=== PATIENT | female | born 1995 | race Caucasian/White ===

== ENCOUNTER 2017-08-31 15:05 | Emergency (ER) | payer OTHER ==
[2017-08-31] MEDS: METOCLOPRAMIDE INJ 10MG/2ML VIAL (J2765) IV (16:40)
[2017-08-31] MEDS: NS 500 ML IV (16:40)
[2017-08-31 16:43] LABS: BASO % 0.2 % (0.0-1.0); EOS % 0.1 % (0.0-3.0); HEMATOCRIT 36.8 % (36.0-47.0); HEMOGLOBIN 13.1 g/dl (12.0-16.0); IMMATURE GRANULOCYTE % 0.3 % (0-0); LYMPH # 1.7 10^3/uL (1.5-6.5); LYMPH % 18.8 % (24.0-44.0); MEAN CORPUSCULAR HGB CONC 35.6 g/dl (32.0-36.5); MEAN CORPUSCULAR VOLUME 87.2 fl (80.0-96.0); MONO # 0.5 10^3/uL (0.0-0.8); MONO % 5.1 % (0.0-5.0); NEUTROPHILS % 75.5 % (36.0-66.0); PLATELET COUNT, AUTOMATED 290 10^3/uL (150-450); RED BLOOD COUNT 4.22 10^6/uL (4.00-5.40); RED CELL DISTRIBUTION WIDTH 12.8 % (11.5-14.5); WHITE BLOOD COUNT 9.2 10^3/uL (4.0-10.0)
[2017-08-31 17:06] LABS: ALBUMIN/GLOBULIN RATIO 1.21 (1.00-1.93); ALKALINE PHOSPHATASE 54 U/L (45-117); ALT/SGPT 42 U/L (12-78); ANION GAP 5 MEQ/L (8-16); AST/SGOT 27 U/L (7-37); BILIRUBIN,TOTAL 0.3 MG/DL (0.2-1.0); BLOOD UREA NITROGEN 9 MG/DL (7-18); C REACTIVE PROTEIN QUANTITATIV 0.39 MG/DL (0.00-0.30); CALCIUM LEVEL 9.3 MG/DL (8.5-10.1); CARBON DIOXIDE LEVEL 26 MEQ/L (21-32); CHLORIDE LEVEL 106 MEQ/L (98-107); CREATININE FOR GFR 0.45 MG/DL (0.55-1.02); GLOMERULAR FILTRATION RATE > 60.0 (>60); GLUCOSE, FASTING 79 MG/DL (70-105); SODIUM LEVEL 137 MEQ/L (136-145); TOTAL PROTEIN 7.3 GM/DL (6.4-8.2)
[2017-08-31] MEDS: NITROFURANTOIN (MACROBID) 100 MG CAP PO (17:29)
== END 2017-08-31 17:43 | disposition home or self-care (01) ==
LOC: M ED 15:05
DX: O23.41 Unspecified infection of urinary tract in pregnancy, first trimester (principal); Z3A.11 11 weeks gestation of pregnancy; Z87.442 Personal history of urinary calculi
CPT/HCPCS: J2765

== ENCOUNTER → 2017-10-15 | Outpatient (CLI) | payer OTHER | LOC: M RAD 10:33 | DX: Z36.0 Encounter for antenatal screening for chromosomal anomalies (principal); Z3A.16 16 weeks gestation of pregnancy | CPT/HCPCS: 76811 ==

== ENCOUNTER 2018-06-05 10:36 | Emergency (ER) | payer OTHER ==
[2018-06-05] MEDS: METOCLOPRAMIDE 10 MG TAB PO (11:05)
[2018-06-05 11:29] LABS: KETONE, URINE AUTO RFX NEGATIVE (NEGATIVE); MUCUS, URINE RFX SMALL (NEGATIVE); NITRITE, URINE AUTO RFX NEGATIVE (NEGATIVE); RBC, URINE AUTO RFX 0 /HPF (0-3); SPECIFIC GRAVITY UR AUTO RFX 1.009 (1.002-1.035); SQUAM EPITHELIAL CELL UR AURFX 3 /HPF (0-6); WBC, URINE AUTO RFX 4 /HPF (0-3)
[2018-06-05 11:30] LABS: LEUKOCYTE ESTERASE UR AUTO RFX 1+ (NEGATIVE)
== END 2018-06-05 12:09 | disposition home or self-care (01) ==
LOC: M ED 10:36
DX: O23.41 Unspecified infection of urinary tract in pregnancy, first trimester (principal); O99.89 Other specified diseases and conditions complicating pregnancy, childbirth and the puerperium; R11.0 Nausea; Z3A.01 Less than 8 weeks gestation of pregnancy
CPT/HCPCS: 81001

== ENCOUNTER 2018-07-17 00:38 | Emergency (ER) | payer OTHER ==
[2018-07-17 01:58] LABS: BASO % 0.2 % (0.0-1.0); EOS % 0.4 % (0.0-3.0); HEMATOCRIT 34.3 % (36.0-47.0); HEMOGLOBIN 12.3 g/dl (12.0-15.5); IMMATURE GRANULOCYTE % 0.4 % (0-3.0); LYMPH # 2.4 10^3/uL (1.5-6.5); MEAN CORPUSCULAR HEMOGLOBIN 30.6 pg (27.0-33.0); MEAN CORPUSCULAR HGB CONC 35.9 g/dl (32.0-36.5); MEAN CORPUSCULAR VOLUME 85.3 fl (80.0-96.0); MONO # 0.5 10^3/uL (0.0-0.8); MONO % 4.8 % (0.0-5.0); NEUTROPHILS # 7.5 10^3/uL (1.8-7.7); NEUTROPHILS % 71.2 % (36.0-66.0); PLATELET COUNT, AUTOMATED 313 10^3/uL (150-450); RED BLOOD COUNT 4.02 10^6/uL (4.00-5.40); RED CELL DISTRIBUTION WIDTH 12.9 % (11.5-14.5); WHITE BLOOD COUNT 10.6 10^3/uL (4.0-10.0)
[2018-07-17] MEDS: NS 1,000 ML IV (02:18)
[2018-07-17 02:48] LABS: ALBUMIN 3.2 GM/DL (3.2-5.2); ALKALINE PHOSPHATASE 50 U/L (45-117); ALT/SGPT 30 U/L (12-78); ANION GAP 12 MEQ/L (8-16); AST/SGOT 15 U/L (7-37); BILIRUBIN,DIRECT < 0.1 MG/DL (0.0-0.2); BILIRUBIN,TOTAL 0.2 MG/DL (0.2-1.0); BLOOD UREA NITROGEN 10 MG/DL (7-18); CALCIUM LEVEL 8.4 MG/DL (8.5-10.1); CARBON DIOXIDE LEVEL 20 MEQ/L (21-32); CHLORIDE LEVEL 109 MEQ/L (98-107); CREATININE FOR GFR 0.45 MG/DL (0.55-1.30); GLOMERULAR FILTRATION RATE > 60.0 (>60); GLUCOSE, FASTING 94 MG/DL (70-100); HCG, SERUM QUANTITATIVE 40260 MIU/ML; POTASSIUM SERUM 3.5 MEQ/L (3.5-5.1); SODIUM LEVEL 141 MEQ/L (136-145); TOTAL PROTEIN 6.4 GM/DL (6.4-8.2)
[2018-07-17 03:30] LABS: APPEARANCE, URINE HAZY (CLEAR); BACTERIA, URINE AUTO 1+ (NEGATIVE); BILIRUBIN, URINE AUTO NEGATIVE (NEGATIVE); BLOOD, URINE BLOOD NEGATIVE (NEGATIVE); COLOR, URINE YELLOW (YELLOW); GLUCOSE, URINE (UA) AUTO NEGATIVE (NEGATIVE); KETONE, URINE AUTO NEGATIVE (NEGATIVE); LEUKOCYTE ESTERASE, URINE AUTO 2+ (NEGATIVE); MUCUS, URINE SMALL (NEGATIVE); NITRITE, URINE AUTO NEGATIVE (NEGATIVE); PROTEIN, URINE AUTO NEGATIVE (NEGATIVE); RBC, URINE AUTO 4 /HPF (0-3); SQUAMOUS EPITHELIAL CELL UR AU 4 /HPF (0-6); WBC, URINE AUTO 14 /HPF (0-3)
[2018-07-17] MEDS: cefTRIAXone SOD 1 GM in D5W MINI-BAG PLUS 50 ML IV (04:09)
== END 2018-07-17 04:45 | disposition home or self-care (01) ==
LOC: M ED 00:38
DX: O23.41 Unspecified infection of urinary tract in pregnancy, first trimester (principal); Z3A.13 13 weeks gestation of pregnancy; Z87.442 Personal history of urinary calculi
CPT/HCPCS: J0696

== ENCOUNTER → 2018-08-05 | Outpatient (REF) | payer OTHER ==
[~2018-08-05] MED LIST: KEFL500C17 PO; MACR100C43 PO; PRENTAB16 PO; REGL10TA6 PO; UNIS25TA3 PO; VITA50TA49 PO
== END ==
LOC: M SFHCLERA 12:53
PROVIDERS: ATTEND Nurse Practitioner Family
DX: R11.10 Vomiting, unspecified (principal)

== ENCOUNTER 2018-12-24 11:17 | Outpatient (CLI) | payer OTHER ==
[~2018-12-24] VITALS: Ht 160 cm; Wt 73.5 kg
[~2018-12-24 11:17] MED LIST changes: -VITA50TA49 PO; +VITA50TA7 PO
[2018-12-24 11:42] VITALS: BP 145/104
[2018-12-24 11:53] VITALS: BP 133/79
[2018-12-24 12:27] LABS: HEMOGLOBIN 11.8 g/dl (12.0-15.5); MEAN CORPUSCULAR HEMOGLOBIN 32.2 pg (27.0-33.0); MEAN CORPUSCULAR HGB CONC 34.7 g/dl (32.0-36.5); MEAN CORPUSCULAR VOLUME 92.9 fl (80.0-96.0); PLATELET COUNT, AUTOMATED 256 10^3/uL (150-450); RED BLOOD COUNT 3.66 10^6/uL (4.00-5.40); WHITE BLOOD COUNT 13.8 10^3/uL (4.0-10.0)
[2018-12-24 12:59] LABS: ALT/SGPT 36 U/L (12-78); BILIRUBIN,TOTAL 0.3 MG/DL (0.2-1.0); CREATININE FOR GFR 0.46 MG/DL (0.55-1.30); GLOMERULAR FILTRATION RATE > 60.0 (>60); LDH LACTATE DEHYDROGENASE 152 U/L (84-246); URIC ACID 3.8 MG/DL (2.6-6.0)
[2018-12-24 13:05] LABS: CREATININE,RANDOM URINE 90.7 MG/DL; TOTAL PROTEIN,RANDOM URINE 29.1 MG/DL (0.0-12.0)
== END 2018-12-24 13:40 | disposition home or self-care (01) ==
LOC: M LDO 11:17
PROVIDERS: ATTEND Obstetrics & Gynecology
DX: O26.899 Other specified pregnancy related conditions, unspecified trimester (principal); R03.0 Elevated blood-pressure reading, without diagnosis of hypertension; R51 Headache; Z3A.00 Weeks of gestation of pregnancy not specified
CPT/HCPCS: 36415; 59025; 82247; 82565; 82570; 83615; 84156; 84450; 84460; 84550; 85027; G0463

== ENCOUNTER 2018-12-28 07:49 | Inpatient (IN) | payer OTHER ==
[~2018-12-28] VITALS: Ht 160 cm; Wt 75.2 kg
[2018-12-28] VITALS (23 sets, daily range): BP systolic 117–142; BP diastolic 71–95
[2018-12-28] MEDS ORDERED: PENICILLIN G POTASSIUM IV 5 MU in D5W MINI-BAG PLUS 100 ML IV STA (08:27)
[2018-12-28] MEDS ORDERED: LACTATED RINGER'S 1000 ML IV STA (08:27)
[2018-12-28] MEDS ORDERED: LR 1,000 ML IV SCH (08:27)
[2018-12-28] MEDS ORDERED: OXYTOCIN DRIP 30 UNITS in APPROPRIATE DILUENT 1 EA IV SCH (08:30)
[2018-12-28 08:59] LABS: HEMATOCRIT 32.5 % (36.0-47.0); HEMOGLOBIN 11.3 g/dl (12.0-15.5); MEAN CORPUSCULAR HGB CONC 34.8 g/dl (32.0-36.5); MEAN CORPUSCULAR VOLUME 89.3 fl (80.0-96.0); PLATELET COUNT, AUTOMATED 296 10^3/uL (150-450); RED BLOOD COUNT 3.64 10^6/uL (4.00-5.40); WHITE BLOOD COUNT 13.2 10^3/uL (4.0-10.0)
--- NOTE | 2018-12-28 09:01 | HPEPDOC ---
Obstetrical History & Physical General Date of Admission December 28, 2018 at 07:49 History of Present Illness 23 y/o at 37+0 with known pre-e dx'd just 2 days ago based on new onset high BP's and 24 hr UP 348. No LOF/VB/reg ctx's. Pos FM. Preg also c/b a persistent EIF and resolved echogenic bowel, seen on first scan, this not seen at [facility] office. Rh Neg, received rhogam 29 weeks, also h/o pyelo at 8 weeks that was treated. First preg was a loss at 20 weeks of a female baby with multiple nonsurvivable anomalies. Chief Complaint: Induction of labor Information Provided By: Patient Care Care: Good Care Dating Final EDC by: LMP, 1st trimester (US) Past Medical History Past Obstetrical History : Past Obstetrical History: Multigravida Type of Delivery: Spontaneous Vaginal Del. 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 Past Medical History Medical History kidney stones and UTI's Surgical History: Tonsilectomy, [place] teeth Family History Significant Family History: No pertinent family hx Social History Marital Status: Family situation: Spouse/partner home Psychosocial History: No pertinent psych hx * Smoker: non-smoker Alcohol: Denies Drugs: denies Abuse Violence Screening Have you been hit/kicked/slapp: No Have you been sexually assault: No Imunizations Tdap status: current Influenza Status: declined Allergies Coded Allergies: No Known Allergies (Unverified , 12/24/18) Medications Miscellaneous Medications 21/Iron Fu/Folic Acid ( Complete [place]) 1 Tab Tab, 1 TAB PO Physical Examination Physical Examination GENERAL: Alert and oriented times three. ABDOMEN: Gravid and non-tender to touch. FETUS: Is vertex (VTX) by sterile vaginal examination (SVE), 3/60/-3. EXTREMITIES: No edema. Vital Signs/I&O Vital Signs Date Time Temp Pulse Resp B/P (MAP) Pulse Ox O2 Delivery O2 Flow Rate FiO2 12/28/18 08:24 97.1 105 18 127/90 (102) Laboratory Data 24H LABS Laboratory Tests 2 12/28/18 08:09: Serology Scanned Report Hepatitis B Testing Urine Culture: Other (gbs pos) Pertinent Laboratoy Data Blood Type: A- RBC Antibody Screen: Negative HIV: Negative Hepatitis B: Negative Hepatitis C: Unknown Rapid Plasma Reagin: Nonreactive Rubella: Immune Varicella: Nonreactive (nonimmune) Chlamydia/Gonorrhea: Negative Group B Streptococcus: Positive Quad Screen Test: Negative (seq screen) Cystic Fibrosis: Declined Glucose Tolerance Test: 99 Anatomy Ultrasound Placenta Location: Posterior Normal Anatomy: No (EIF only, resolved echogenic bowel) Placenta Previa: No Assessment Variability: Moderate Accelerations: Positive Decelerations: None Tocometer Frequency: irregular Strength: palpated as mild Assessment/Plan Assessment 37+0 with pre-e, no severe features. Favorable cervix. Plan Admit and orient. [place] [facility] and consent. Diet: clears Group B Streptococcus (GBS) pos, PCN 5/2.5 Labs and intravenous (IV) per unit protocol. Counseled on Pitocin and induction of labor (IOL). Lactated Ringers (LR): Bolus 1000 mL if edcides on epidural, then at 125 mL/hr o/w Anticipate normal spontaneous delivery () C-S as appropriate. Sessions MD BARTH,NATO Nunez MD December 28, 2018 09:01
[2018-12-28] MEDS: LR 1,000 ML IV SCH ×2 (09:06→16:27)
[2018-12-28 09:16] LABS: ALT/SGPT 38 U/L (12-78); BILIRUBIN,TOTAL 0.3 MG/DL (0.2-1.0); CREATININE FOR GFR 0.56 MG/DL (0.55-1.30); GLOMERULAR FILTRATION RATE > 60.0 (>60); LDH LACTATE DEHYDROGENASE 188 U/L (84-246); URIC ACID 3.7 MG/DL (2.6-6.0)
[2018-12-28] MEDS: PENICILLIN G POTASSIUM IV 2.5 MU in APPROPRIATE DILUENT 1 EA IV SCH ×3 (13:00→21:09)
--- NOTE | 2018-12-28 14:03 | IPNPDOC ---
Text Note Date of Service The patient was seen on 12/28/18. NOTE Pit at 10 mu/min, just starting to really feel them, reg ctx's Cx unchanged Recheck in ~4 hrs, sooner prn Sessions A-FIB/MILE A-FIB History Current/History of A-Fib/PAF?: No VS,Fishbone, I+O VS, Fishbone, I+O Laboratory Tests 12/28/18 08:42 Red Blood Count 3.64 L, Mean Corpuscular Volume 89.3, Mean Corpuscular Hemoglobin 31.0, Mean Corpuscular Hemoglobin Concent 34.8, Red Cell Distribution Width 13.1, Aspartate Amino Transf (AST/SGOT) 28, Alanine Aminotransferase (ALT/SGPT) 38, Lactate Dehydrogenase 188, Total Bilirubin 0.3, Uric Acid 3.7 Vital Signs Date Time Temp Pulse Resp B/P (MAP) Pulse Ox O2 Delivery O2 Flow Rate FiO2 12/28/18 11:30 97.2 76 18 123/82 (96) SESSIONS,NATO Nunez MD December 28, 2018 14:03
--- NOTE | 2018-12-28 20:06 | IPNPDOC ---
Text Note Date of Service The patient was seen on 12/28/18. NOTE Pit at 18 mu/min, reg ctx's Cx unchanged Recheck in ~4 hrs, sooner prn Sessions A-FIB/MILE A-FIB History Current/History of A-Fib/PAF?: No VS,Fishbone, I+O VS, Fishbone, I+O Laboratory Tests 12/28/18 08:42 Red Blood Count 3.64 L, Mean Corpuscular Volume 89.3, Mean Corpuscular Hemoglobin 31.0, Mean Corpuscular Hemoglobin Concent 34.8, Red Cell Distribution Width 13.1, Aspartate Amino Transf (AST/SGOT) 28, Alanine Aminotransferase (ALT/SGPT) 38, Lactate Dehydrogenase 188, Total Bilirubin 0.3, Uric Acid 3.7 Vital Signs Date Time Temp Pulse Resp B/P (MAP) Pulse Ox O2 Delivery O2 Flow Rate FiO2 12/28/18 18:49 72 18 124/85 (98) 12/28/18 15:09 97.4 SESSIONS,NATO Nunez MD December 28, 2018 20:06
[2018-12-29] VITALS (10 sets, daily range): BP systolic 101–139; BP diastolic 57–99
[2018-12-29] MEDS: PENICILLIN G POTASSIUM IV 2.5 MU in APPROPRIATE DILUENT 1 EA IV SCH ×6 (01:32→21:26)
[2018-12-29] MEDS: LR 1,000 ML IV SCH ×3 (01:33→15:23)
--- NOTE | 2018-12-29 02:13 | IPNPDOC ---
Text Note Date of Service The patient was seen on 12/29/18. NOTE Pit at 18 mu/min, reg ctx's Cx not checked due to sleeping, no subjective change at all despite her pitocin dose/reg ctx's since yest AM Surprising that her pitocin has not changed her already favorable cervix. Will stop the pitocin now and give her 50 mcg miso PO in 1 hour, she can then order breakfast 4 hours later and we can recheck her cx and consider another miso dose versus returning to pitocin at that point. Sessions A-FIB/MILE A-FIB History Current/History of A-Fib/PAF?: No VS,Fishbone, I+O VS, Fishbone, I+O Laboratory Tests 12/28/18 08:42 Red Blood Count 3.64 L, Mean Corpuscular Volume 89.3, Mean Corpuscular Hemoglobin 31.0, Mean Corpuscular Hemoglobin Concent 34.8, Red Cell Distribution Width 13.1, Aspartate Amino Transf (AST/SGOT) 28, Alanine Aminotransferase (ALT/SGPT) 38, Lactate Dehydrogenase 188, Total Bilirubin 0.3, Uric Acid 3.7 Vital Signs Date Time Temp Pulse Resp B/P (MAP) Pulse Ox O2 Delivery O2 Flow Rate FiO2 12/28/18 18:49 72 18 124/85 (98) 12/28/18 15:09 97.4 I&O- Last 24 Hours up to 6 AM 12/29/18 06:00 Intake Total 2128 ml Output Total 4350 ml Balance -2222 ml SESSIONS,NATO Nunez MD December 29, 2018 02:13
[2018-12-29] MEDS ORDERED: miSOPROStol 50 MCG 1/2 TAB (S0191) PO ONE (03:00)
[2018-12-29] MEDS ORDERED: miSOPROStol 25 MCG 1/4 TAB (S0191) As Ordered ONE (07:56)
[2018-12-29] MEDS ORDERED: miSOPROStol 25 MCG 1/4 TAB (S0191) PV ONE (08:15)
--- NOTE | 2018-12-29 08:55 | IPNPDOC ---
Text Note Date of Service The patient was seen on 12/29/18. NOTE Intrapartum Note Sarah is a 23yo with SIUP at 37+wk who was admitted for IOL for pre- eclampsia withOUT severe features over the weekend. She has been normotensive with normal PIH labs other than proteinuria. She was initially started on pitocin, but after no cervical change occurred, pitocin was turned off and she was given a dose of 50mcg PO cytotec last night. She has been comfortable with no sx of pre-E. Vitals wnl, afebrile SCE /-2, bloody show noted, 25mcg cytotec placed PV Cat I FHRT with +accels, -decels, mod reece [place]: irreg ctx Will continue to closely monitor Plan to re-check in 4hr and if no significant change, will plan to continue cytotec Receiving PCN for GBS pos Safe to proceed Dr. Steffany Torres MD A-FIB/CHADSVASC A-FIB History Current/History of A-Fib/PAF?: No Current Oral Anticoagulant The: No VS,Fishbone, I+O VS, Fishbone, I+O Vital Signs Date Time Temp Pulse Resp B/P (MAP) Pulse Ox O2 Delivery O2 Flow Rate FiO2 12/29/18 07:39 97.1 75 18 130/97 (108) I&O- Last 24 Hours up to 6 AM 12/29/18 06:00 Intake Total 2128 ml Output Total 4800 ml Balance -2672 ml Steffany Torres MD December 29, 2018 08:55
[2018-12-29] MEDS: miSOPROStol 50 MCG 1/2 TAB (S0191) PO SCH ×2 (12:31→17:29)
--- NOTE | 2018-12-29 21:26 | IPNPDOC ---
Text Note Date of Service The patient was seen on 12/29/18. NOTE Intrapartum Note Sarah is a 23yo with SIUP at 37+wk who was admitted for IOL for pre- eclampsia withOUT severe features over the weekend. She has been normotensive with normal PIH labs other than proteinuria. She was initially started on pitocin, but after no cervical change occurred, pitocin was turned off and she was started on cytotec for cervical ripening. She has now received 4 total doses of cytotec. She is still comfortable, feeling only occasional ctx, with no sx of pre-E. Vitals wnl, afebrile SCE /-2 Cat I FHRT with +accels, -decels, mod reece [place]: ctx q3-4min Will initiate pitocin and titrate per protocol Will continue to closely monitor Receiving PCN for GBS pos Safe to proceed Dr. Steffany Torres MD A-FIB/CHADSVASC A-FIB History Current/History of A-Fib/PAF?: No Current Oral Anticoagulant The: No VS,Fishbone, I+O VS, Fishbone, I+O Vital Signs Date Time Temp Pulse Resp B/P (MAP) Pulse Ox O2 Delivery O2 Flow Rate FiO2 12/29/18 07:39 97.1 75 18 130/97 (108) I&O- Last 24 Hours up to 6 AM 12/29/18 06:00 Intake Total 2128 ml Output Total 4800 ml Balance -2672 ml Steffany Torres MD December 29, 2018 21:26
[2018-12-29] MEDS ORDERED: OXYTOCIN DRIP 30 UNITS in APPROPRIATE DILUENT 1 EA IV SCH (21:30)
[2018-12-30] VITALS (13 sets, daily range): BP systolic 95–139; BP diastolic 57–95
[2018-12-30] MEDS: LR 1,000 ML IV SCH (00:30)
[2018-12-30] MEDS: PENICILLIN G POTASSIUM IV 2.5 MU in APPROPRIATE DILUENT 1 EA IV SCH ×3 (01:15→14:17)
[2018-12-30 06:48] LABS: HEMOGLOBIN 11.6 g/dl (12.0-15.5); MEAN CORPUSCULAR HEMOGLOBIN 30.9 pg (27.0-33.0); MEAN CORPUSCULAR HGB CONC 34.1 g/dl (32.0-36.5); MEAN CORPUSCULAR VOLUME 90.7 fl (80.0-96.0); PLATELET COUNT, AUTOMATED 297 10^3/uL (150-450); RED BLOOD COUNT 3.75 10^6/uL (4.00-5.40); WHITE BLOOD COUNT 15.1 10^3/uL (4.0-10.0)
--- NOTE | 2018-12-30 07:09 | IPNPDOC ---
Text Note Date of Service The patient was seen on 12/30/18. NOTE Intrapartum Note Sarah is a 23yo with SIUP at 37w2d who was admitted for IOL for pre- eclampsia withOUT severe features on 12/28. She has been normotensive with normal PIH labs other than proteinuria. She was initially started on pitocin, but after no cervical change occurred, pitocin was turned off and she was started on cytotec for cervical ripening. She received 4 total doses of cytotec and was re- started on pitocin last night. She is still overall comfortable, feeling only occasional ctx, with no sx of pre-E. She does endorse some right low back pain she states is similar to the pain she had with pyelonephritis previously. Vitals wnl (normotensive), afebrile SCE 4/50/-2, AROM performed at 0615 with clear fluid noted and IUPC/FSE placed without issue Cat I FHRT with +accels, -decels, mod reece [place]: ctx q2-3min Pitocin currently at 16mu, will titrate per protocol to effect adequate MVUs Will continue to closely monitor Receiving PCN for GBS pos Patient is candidate for epidural (CBC was recently repeated and wnl) which she will likely desire soon- after epidural is placed, will obtain urine for UA/UCX when tubbs is placed Safe to proceed Dr. Steffany Torres MD A-FIB/CHADSVASC A-FIB History Current/History of A-Fib/PAF?: No Current Oral Anticoagulant The: No VS,Fishbone, I+O VS, Fishbone, I+O Laboratory Tests 12/30/18 06:39 Red Blood Count 3.75 L, Mean Corpuscular Volume 90.7, Mean Corpuscular Hemoglobin 30.9, Mean Corpuscular Hemoglobin Concent 34.1, Red Cell Distribution Width 13.2 Vital Signs Date Time Temp Pulse Resp B/P (MAP) Pulse Ox O2 Delivery O2 Flow Rate FiO2 12/30/18 02:21 75 18 95/57 (70) 12/29/18 23:21 97.8 I&O- Last 24 Hours up to 6 AM 12/30/18 05:59 Intake Total 5823 ml Output Total 5050 ml Balance 773 ml Steffany Torres MD December 30, 2018 07:09
[2018-12-30] MEDS ORDERED: FENTANYL 2MCG/ML ROPIVACAINE 0.2% IN 0.9% NACL 100ML IVBAG As Ordered ONE (07:33)
[2018-12-30] MEDS ORDERED: ePHEDrine SULFATE 25 MG/5 ML(5MG/ML) SYRINGE IV PRN (07:35)
[2018-12-30] MEDS ORDERED: diphenhydrAMINE INJ 50MG/ML VIAL (J1200) IV PRN (07:35)
[2018-12-30] MEDS ORDERED: REFRIGERATOR IV KEYS XX PRN (07:35)
[2018-12-30] MEDS ORDERED: EPIDURAL/PCA KEYS XX PRN (07:35)
[2018-12-30] MEDS ORDERED: ONDANSETRON 4MG/2ML VIAL (J2405) IV PRN (07:35)
[2018-12-30] MEDS ORDERED: NALOXONE INJ 0.4 MG/1 ML VIAL (J2310) IV PRN (07:35)
[2018-12-30] MEDS ORDERED: LACTATED RINGER'S 1000 ML IV PRN (07:35)
[2018-12-30] MEDS ORDERED: EPIDURAL COMMENT XX SCH (07:35)
[2018-12-30] MEDS ORDERED: FENTANYL/ROPIVACAINE/NACL BAG 100 ML EPIDURAL SCH (07:35)
--- NOTE | 2018-12-30 10:19 | NUR ---
Intrapartum progress note: Date of Service The patient was seen on 12/30/18. NOTE Intrapartum Note Sarah is a 23yo with SIUP at 37w2d who was admitted for IOL for pre-eclampsia withOUT severe features on 12/28. She has been normotensive with normal PIH labs other than proteinuria. She was initially started on pitocin, but after no cervical change occurred, pitocin was turned off and she was started on cytotec for cervical ripening. She received 4 total doses of cytotec and was re-started on pitocin last night. At present she denies pain/pressure and is resting with [place]; with no sx of pre-E. Vitals wnl (normotensive), afebrile SCE 7/90/0; clear fluid Cat I FHRT with +accels, early decelerations, mod reece [place]: ctx q2-3min (adequate mvu's on 8mu/min of oxytocin) Pitocin per titration protocol to maintain MVU's 180-200 Will continue to closely monitor Receiving PCN for GBS pos I anticipate this afternoon Safe to proceed
[2018-12-30 15:57] LABS: CORD GAS ABE A -7.6; CORD GAS O2 SAT A 44.6 %; CORD GAS PCO2 A 54.5 mmHg; CORD GAS PH A 7.203 UNITS; CORD GAS PO2 A 23.5 mmHg; CORD GAS SBC A 17.2 MEQ/L; CORD GAS TCO2 A 22.6 MEQ/L
[2018-12-30 15:59] LABS: CORD GAS ABE V -6.6; CORD GAS HCO3 V 18.5 MEQ/L; CORD GAS O2 SAT V 76.6 %; CORD GAS PH V 7.328 UNITS; CORD GAS PO2 V 33.9 mmHg; CORD GAS SBC V 18.7 MEQ/L; CORD GAS TCO2 V 19.6 MEQ/L
--- NOTE | 2018-12-30 16:20 | NUR ---
1304 PM Reassessment progress now feels intermittent pressure with adequate contractions category 1 strip moderate variability Pelvic exam fully dilated moderate moulding asynclitic -1 station. Plan allow to labor down anticipate
[2018-12-30] MEDS ORDERED: DOCUSATE SODIUM 100 MG CAP PO PRN (16:30)
[2018-12-30] MEDS ORDERED: ACETAMINOPHEN TAB 650MG DOSE (2X325MG) PO PRN (16:30)
[2018-12-30] MEDS ORDERED: ANUSOL HC CREAM 30GM TOP PRN (16:30)
[2018-12-30] MEDS ORDERED: RHOGAM 300 MCG (1500 IU) INJ (J2790) IM SCH (16:30)
[2018-12-30] MEDS ORDERED: OXYTOCIN INJ 10 UNITS/ML VIAL (J2590) IV ONE (16:30)
[2018-12-30] MEDS ORDERED: miSOPROStol 200 MCG TAB (S0191) PR ONE (16:30)
[2018-12-30] MEDS ORDERED: MEASLES,MUMPS,RUBELLA VACCINE INJ (MMR-II) (90707) SC SCH (16:30)
[2018-12-30] MEDS ORDERED: IBUPROFEN 600 MG TAB PO PRN (16:30)
[2018-12-30] MEDS ORDERED: DIBUCAINE 1% OINTMENT 30GM TOP PRN (16:30)
[2018-12-30] MEDS ORDERED: MOM 30ML SUSPENSION UDC PO PRN (16:30)
[2018-12-30 16:50] LABS: APPEARANCE, URINE CLEAR (CLEAR); BACTERIA, URINE AUTO 1+ (NEGATIVE); BILIRUBIN, URINE AUTO NEGATIVE (NEGATIVE); BLOOD, URINE BLOOD 2+ (NEGATIVE); COLOR, URINE YELLOW (YELLOW); GLUCOSE, URINE (UA) AUTO NEGATIVE (NEGATIVE); KETONE, URINE AUTO 2+ mg/dL (NEGATIVE); LEUKOCYTE ESTERASE, URINE AUTO NEGATIVE (NEGATIVE); MUCUS, URINE SMALL (NEGATIVE); NITRITE, URINE AUTO NEGATIVE (NEGATIVE); PROTEIN, URINE AUTO 1+ mg/dL (NEGATIVE); RBC, URINE AUTO 155 /HPF (0-3); SPECIFIC GRAVITY URINE AUTO 1.012 (1.002-1.035); SQUAMOUS EPITHELIAL CELL UR AU 1 /HPF (0-6); UROBILINOGEN, URINE AUTO 0.2 mg/dL (0.0-2.0); WBC, URINE AUTO 4 /HPF (0-3)
[2018-12-30] MEDS ORDERED: OXYTOCIN DRIP 30 UNITS in APPROPRIATE DILUENT 1 EA IV SCH (17:00)
--- NOTE | 2018-12-30 17:16 | DN ---
DATE: 12/30/2018 This lady is a 23-year-old 2 was admitted for preeclampsia, induction of labor, had a three-day induction with Cytotec, Pitocin and Pitocin. She eventually got fully dilated and had a spontaneous vaginal delivery over a small midline episiotomy, live female , weighing 6 pounds, 11 ounces, 3040 grams, scores of 9 and 9 at one and five minutes respectively. Arterial pH 7.20, base excess -7.6, venous pH 7.32, base excess -6.6. The placenta delivered spontaneously thereafter. Three-vessel cord, membranes and tissues intact. The midline episiotomy was oversewn in the usual fashion. Sphincter was tight. Lateral johnson were normal. Anteroposterior johnson were clear. Uterus contracted well down on Pitocin. The patient and the baby tolerating the procedure well. The midline episiotomy was oversewn with a 2-0 Vicryl on a [id number]. She was given Cytotec 1000 mg per rectum because of prolonged three-day induction of labor and the possibility of uterine atony. On review of the patient half an hour later, the uterus was still contracted well down, minimal amount of bleeding.
[2018-12-30] MEDS ORDERED: OXYTOCIN INJ 10 UNITS/ML VIAL (J2590) As Ordered ONE (18:57)
[2018-12-30] MEDS ORDERED: miSOPROStol 200 MCG TAB (S0191) As Ordered ONE (18:58)
[2018-12-31] MEDS: ACETAMINOPHEN 500 MG TAB PO PRN ×2 (02:41→09:32)
[2018-12-31] MEDS: IBUPROFEN 800 MG TAB PO PRN ×2 (03:16→14:24)
[2018-12-31 06:21] VITALS: BP 114/76
[2018-12-31 06:46] LABS: HEMATOCRIT 35.1 % (36.0-47.0); MEAN CORPUSCULAR HEMOGLOBIN 31.6 pg (27.0-33.0); MEAN CORPUSCULAR HGB CONC 34.2 g/dl (32.0-36.5); MEAN CORPUSCULAR VOLUME 92.4 fl (80.0-96.0); PLATELET COUNT, AUTOMATED 292 10^3/uL (150-450); WHITE BLOOD COUNT 18.4 10^3/uL (4.0-10.0)
[2018-12-31] MEDS: PRENATAL VITAMINS CHEWABLE TABLET PO SCH (09:31)
--- NOTE | 2018-12-31 10:17 | IPN ---
DATE: This lady is a 23-year-old, 2 now para 2 admitted for induction of labor. Pitocin Cytotec and Pitocin again, delivered with epidural in place a female 6 pounds 11 ounces, 3480 grams, scores of 9 and 9 at 1 and 5 minutes, respectively. Arterial pH was 7.20, base excess -7.6, venous pH 7.32, base excess -6.6. Admitting hemoglobin was 11.3, hematocrit 32.5 and platelets were 296. day hemoglobin 12.0, hematocrit 35.1 and platelets were 292. Her vital signs today: Her blood pressure is 114/76, respirations 18, pulse 68, temperature 97.8. She is not bleeding. She is neuro complete. She had Cytotec as a prophylaxis because of prolonged Pitocin and Cytotec. She is doing well and mobilizing. We discussed phlebitis, cystitis, mastitis, endometritis and cellulitis, diet, exercise, pain management, perineal/ breast/wound care. The patient is uncertain about control at present time. Medications were dispensed to her upon discharge. She should have a 6-week checkup with [facility].
[2018-12-31 18:00] VITALS: BP 137/96
[2019-01-01] MEDS: IBUPROFEN 800 MG TAB PO PRN (05:05)
[2019-01-01 05:47] VITALS: BP 128/85
[2019-01-01] MEDS: PRENATAL VITAMINS CHEWABLE TABLET PO SCH (08:19)
--- NOTE | 2019-01-01 08:26 | NUR ---
Progress Note: S: Sarah is a 23 y/o G2 now P2002 admitted for IOL d/t pre-eclampsia w/o severe features. She delivered on 12/30/18 and is now PP day 2. Doing well, VSS, pain well controlled, bleeding is decreasing, mood stable, feeding w/o assistance, urinating w/o difficulty. She desires to be dc'd today. O: VSS/AF GEN: A&Ox3; bonding PUL: CTAB CV:RRR Breast: soft; filling; nipples intact Fundus: F@U-3 Lochia: Scant rubra EXT: neg homans A/P: Sarah is a 23 y/o G2 now P2002. PPD2. Routine PP course. Reviewed warning signs and return precautions. Will f/u in 6 -8 weeks at OBGYN and/or earlier as needed. Pt agrees with plan. Outpatient meds rx'd to [facility] outpatient pharmacy.
[2019-01-01] MEDS ORDERED: IBUP80TA PO (08:28)
[2019-01-01] MEDS ORDERED: ACET-683 PO (08:28)
[2019-01-01] MEDS ORDERED: DIBU10OI TOP (08:28)
== END 2019-01-01 11:15 | disposition home or self-care (01) | DRG 998 ==
LOC: M LDI 07:49 → M OBS 12-30 19:12
PROVIDERS: ADMIT Obstetrics & Gynecology; ATTEND Obstetrics & Gynecology
PROC: 0W8NXZZ Division of Female Perineum, External Approach (ICD-10-PCS; principal; 2018-12-30)
PROC: 3E033VJ Introduction of Other Hormone into Peripheral Vein, Percutaneous Approach (ICD-10-PCS; 2018-12-30)
PROC: 3E0P7VZ Introduction of Hormone into Female Reproductive, Via Natural or Artificial Opening (ICD-10-PCS; 2018-12-30)
DX: O14.94 Unspecified pre-eclampsia, complicating childbirth (principal); Z37.0 Single live birth; Z3A.37 37 weeks gestation of pregnancy; O99.820 Streptococcus B carrier state complicating pregnancy